=== PATIENT | female | born 1945 | race Caucasian/White ===

== ENCOUNTER → 2016-10-15 14:14 | Outpatient (CLI) | payer OTHER ==
[2016-05-25 18:46] VITALS: BMI 27.2
[~2016-10-15 14:14] MED LIST: ACIDOPHILUS X-S1 TAB PO; ALDACTONE25 MG PO; ALDACTONE50 MG PO; CALCIUM CITRATE PO; CALTRATE-600600 MG PO; CARAFATE1 G PO; COLCRYS0.6 MG PO; COREG12.5 MG PO; COREG25 MG PO; COZAAR25 MG; COZAAR25 MG PO; COZAAR50 MG PO; DEMADEX5 MG PO; ELIQUIS5 MG PO; FERATE PO; FERROCITE PLUS1 CAP PO; HUMALOG 30100 UNITS/ SC; LANOXIN250 MCG PO; LEVEMIR100 U/M1; LEVEMIR100 U/M1 SC; LEVEMIR100 U/M1 SQ; LEXAPRO10 MG PO; LEXAPRO20 MG PO; LEXAPRO5 MG PO; NOVOLOG MI100 UNIT/1; NOVOLOG100 U/M1 SC; PRADAXA150 MG PO; PRAVACHOL40 MG PO; PRILOSEC20 MG PO; TYLENOL ARTHRI650 MG PO; ULTRAM50 MG PO; ZYLOPRIM300 MG PO; [UNRECOGNIZED DRUG - OTHER] OR; [UNRECOGNIZED DRUG - OTHER] PO
== END | disposition home or self-care (01) ==
LOC: D.MAMMO 10-14 10:00
DX: Z12.31 Encounter for screening mammogram for malignant neoplasm of breast (principal)

== ENCOUNTER 2016-10-23 10:50 | Outpatient (CLI) | payer OTHER ==
[~2016-10-23] VITALS: Ht 160 cm; Wt 68.2 kg
[2016-10-23] MEDS ORDERED: ALDACTONE25 MG PO (14:04)
[2016-10-23 14:10] VITALS: BP 191/62; Ht 160 cm; Wt 68.2 kg
--- NOTE | 2016-10-23 14:14 | NUR ---
1350 PT VOIDS. PRE MEDG GIVEN PER SEP. BLOOD CHECKED AT BEDSIDE BY THIS NURSE AND AL COWAN RN. INITIATED BY ALARIS PUMP AT 50/CC/HR. 1405 DENIES PROBLEMS, RATE INCREASED TO 150/CC/HR.
--- NOTE | 2016-10-23 15:39 | NUR ---
1315 NO PROBLEMS WITH TRANSFUSION. RATE AT 150/CC/HR. PT GETTING SLEEPY. FRIEND AT BEDSIDE.
--- NOTE | 2016-10-23 16:26 | NUR ---
1450 PT NAPPING. FRIEND LEFT AT THIS TIME. 1505 IT SITE PATENT. BLOOD GOING WELL. 1535 BLOOD NEAR COMPLETEION. 1550 BLOOD COMPLETED, LINE BEING FLUSHED WITH NS. 1600 2ND UNIT CHECKED AT BEDSIDE BY THIS NURSE AND AL DE PAZ RN, INITIATED AT 50/CC/HR BY ALARIS PUMP. 1615 DENIES PROBLEMS, RATE INCREASED TO 150/CC/HR, ADA SUPPER TRAY ORDERED.
--- NOTE | 2016-10-23 16:36 | NUR ---
1630 ADA SUPPER DIET SERVED.
--- NOTE | 2016-10-23 18:03 | NUR ---
1730 ATE 80% SUPPER, BLOOD NEAR COMPLETION, TALKING ON PHONE, FRIEND AT BEDSIDE. 1800 BLOOD COMPLETED, LINE BEING FLUSHED WITH NS.
--- NOTE | 2016-10-23 19:04 | NUR ---
1900 POST V.S. CHECK GOOD, IV DC'D WITH CATH INTACT. PT. UP TO BR VOIDS LG AMT. RELEASED IN WC.
== END 2016-10-23 19:15 | disposition home or self-care (01) ==
LOC: D.OPS 10:50
DX: D64.9 Anemia, unspecified (principal)

== ENCOUNTER → 2016-11-18 16:43 | Outpatient (CLI) | payer OTHER ==
[2016-10-23 14:10] VITALS: BMI 26.6
== END | disposition home or self-care (01) ==
LOC: D.MAMMO 14:00
DX: R92.8 Other abnormal and inconclusive findings on diagnostic imaging of breast (principal)

== ENCOUNTER 2016-12-04 07:25 | Day surgery (SDC) | payer OTHER ==
[~2016-12-04] VITALS: Ht 160 cm; Wt 65.8 kg
--- NOTE | ~2016-12-04 | OP ---
PATIENT NAME: FESTUS HERNANDES MEDICAL RECORD: [id number] :47 LOCATION:D.OPS ADMISSION DATE: SURGEON: TEDDY HOWELL MD DATE OF OPERATION: 12/04/2016 PREOPERATIVE DIAGNOSES: 1. Acute blood loss anemia requiring transfusions. 2. 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 POSTOPERATIVE DIAGNOSES: 1. Acute blood loss anemia requiring transfusions. 2. 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 3. Cardial ectasias, fundal ectasias and a recurrence of moderate amount of gastric antral vascular ectasias, which certainly could account for the patient's acute blood loss anemia. PROCEDURES: 1. Esophagogastroduodenoscopy without biopsies. 2. Argon plasma coagulation therapy to gastric fundal and cardial vascular ectasias of the stomach, which is a radiofrequency type of ablation of benign gastric process. SURGEON: Teddy Howell MD WOOD GRINDER OPERATOR: None. BLOOD LOSS: Minimal. ANESTHESIA: General. COMPLICATIONS: None. OPERATIVE COURSE: The patient was conveyed to the operating room electively on 12/04/2016. General anesthesia was induced by anesthesia staff. A bite block was inserted. A gastroscope was inserted into the mouth. It was advanced easily into the hypopharynx. The esophagus was easily intubated as were the stomach and duodenum. Upon withdrawal, retroflexed and angulus views were obtained. No biopsies were obtained. Utilizing the argon plasma tibco developer with the esophageal setting in the forced mode, I ablated some cardial ectasias including some just distal to the EG junction, some fundal ectasias and then a moderate amount of antral ectasias, which likely accounts for the patient's acute blood loss anemia. The endoscope was then withdrawn under direct vision. The patient was then extubated and conveyed to post-anesthesia care unit where she was in stable condition. There is no need for her to follow up with me in the office unless she develops a complication related to this operative procedure. She will be referred back if she has recurrent anemia from new ectasias. TRANSINT:[id number] Voice Confirmation ID: [id number] DOCUMENT ID: [id number] OPERATIVE REPORT [id number] FESTUS HERNANDES ROBERT MD CC: OLIVIA GRAHAM MD, ROXANN JAVIER MD and COLLIN MORENO MD [id number] DICTATION DATE: 12/04/16 1128 COLLECTION SUPPORT SPECIALIST: 12/04/16 1451 [facility] 12/04/16 [address] [address] [place] [address]
--- NOTE | ~2016-12-04 | HP ---
PATIENT: FESTUS HERNANDES MEDICAL RECORD: [id number] ACCOUNT: [id number] LOCATION:RACHEL : 47 ADMISSION DATE: 12/04/16 HISTORY AND PHYSICAL EXAMINATION CHIEF COMPLAINT: Anemia. HISTORY OF PRESENT ILLNESS: The patient has recurrent anemia. It is acute blood loss anemia, which has required a recent transfusion. The patient has a history of gastric antral vascular ectasias, which have bled and caused acute blood loss anemia. She has been referred back for argon plasma coagulation therapy to these areas. The risks, possible complications and alternatives to procedure were explained to the patient. She elects to proceed. PAST MEDICAL AND SURGICAL HISTORY: Gout, headache, history of heart murmur, hypertension, kidney disease, arthritis, diabetes, diverticulitis, history of diverticulitis, history of syncope, history of EGDs, history of breast biopsy, history of pacemaker and defibrillator, history of laminectomy, history of knee surgery, anxiety, hypersomnia, cardiomyopathy, gastric antral vascular ectasias, chronic renal failure, polyarthropathy, atrial fibrillation, insulin-dependent diabetes mellitus, congestive heart failure. FAMILY HISTORY: Mother had a malignant tumor of an ovary, father had a malignant tumor of the colon and 2 sisters had malignant tumors of the breast. SOCIAL HISTORY: Retired. Former smoker. REVIEW OF SYSTEMS: Positive for dyspnea on exertion, positive for heart murmur, positive for nausea, positive for diarrhea, positive for arthralgias, positive for back pain. HOME MEDICATIONS: Last list of home medicines I have for the patient includes carvedilol, digox, Humalog, Lexapro, losartan, omeprazole, spironolactone, torsemide, tramadol. ALLERGIES: CODEINE AND MORPHINE. PHYSICAL EXAMINATION: GENERAL: The patient does not appear acutely ill. She does not appear chronically ill. VITAL SIGNS: Reviewed. HEENT: External ears appear normal. She has limited range of motion of the neck. NECK: Trachea is midline. CHEST: No intercostal retractions. PULMONARY: Nonlabored, no stridor. ABDOMEN: Nontender. EXTREMITIES: No peripheral cyanosis. INTEGUMENT: No rash, no ulcerations. PSYCHIATRIC: Normal affect. NEUROLOGIC: Nonfocal, no lethargy. The patient answers questions appropriately. She talks very slowly; however. EXTREMITIES: No peripheral cyanosis. BACK: Mild thoracic kyphosis. HISTORY AND PHYSICAL [id number] FESTUS HERNANDES IMPRESSION: Acute blood loss anemia requiring transfusions, likely due to recurrence of bleeding gastric antral vascular ectasias. PLAN: EGD with the argon plasma edge cutting machine operator. TRANSINT:[id number] Voice Confirmation ID: [id number] DOCUMENT ID: [id number] TEDDY HOWELL MD CC: OLIVIA GRAHAM MD, ROXANN JAVIER MD and COLLIN MORENO MD [id number] DICTATION DATE: 12/04/16 1135 MANAGER INSURANCE: 12/04/16 1204 [facility] 12/04/16 [id number] [place] [address]
[~2016-12-04 07:25] MED LIST changes: +ASPIRIN EC81 M1 PO; +MACROBID100 MG PO; +OMEPRAZOLE40 MG PO
[2016-12-04 08:38] LABS: HEMATOCRIT 29.5 % (36.0-48.0); HEMOGLOBIN 8.8 g/dL (12-16); MCH 26.6 pg (26.0-34.0); MCHC 29.8 g/dL (31.0-37.0); MCV 89.1 fL (80.0-100.0); MEAN PLATELET VOLUME 9.8 fL (7.4-10.4); RBC 3.31 10x6/uL (4.00-5.40); RDW 15.5 % (11.5-14.5); WBC 4.1 10x3/uL (4.8-10.8)
[2016-12-04 08:53] LABS: ANION GAP 8.6 mmol/L (8-16); CALCIUM 8.9 mg/dL (8.5-10.1); CARBON DIOXIDE 30.3 mmol/L (21.0-32.0); CREATININE - SERUM 1.2 mg/dL (0.6-1.3); POTASSIUM - SERUM 4.9 mmol/L (3.5-5.1)
[2016-12-04 09:03] VITALS: Ht 160 cm; Wt 65.8 kg
--- NOTE | 2016-12-04 14:15 | NUR ---
CONSUMED 100% OF FULL LIQUIDS, FAMILY HERE FOR TELEMARKETER SUPERVISOR. DISCHARGE INSTRUCTIONS GIVEN, VOICED UNDERSTANDING. IV REMOVED INTACT. DISCHARGED HOME VIA WC.
== END 2016-12-04 14:20 | disposition home or self-care (01) ==
LOC: D.OPS 07:25 → D.PAN 09:10 → D.OPS 10:00
PROVIDERS: Anesthesiology
DX: K31.811 Angiodysplasia of stomach and duodenum with bleeding (principal); D62 Acute posthemorrhagic anemia; M13.0 Polyarthritis, unspecified; E11.22 Type 2 diabetes mellitus with diabetic chronic kidney disease; I13.0 Hypertensive heart and chronic kidney disease with heart failure and stage 1 through stage 4 chronic kidney disease, or unspecified chronic kidney disease; N18.9 Chronic kidney disease, unspecified; I50.9 Heart failure, unspecified; Z87.891 Personal history of nicotine dependence; Z79.4 Long term (current) use of insulin; I48.91 Unspecified atrial fibrillation; Z95.0 Presence of cardiac pacemaker; Z95.810 Presence of automatic (implantable) cardiac defibrillator; F41.9 Anxiety disorder, unspecified; G47.10 Hypersomnia, unspecified; M10.9 Gout, unspecified; Z79.899 Other long term (current) drug therapy

== ENCOUNTER → 2016-12-18 08:29 | Outpatient (CLI) | payer OTHER ==
[2016-12-04 09:03] VITALS: BMI 25.7
== END | disposition home or self-care (01) ==
LOC: D.US 08:29
DX: N63 Unspecified lump in breast (principal); R92.8 Other abnormal and inconclusive findings on diagnostic imaging of breast

== ENCOUNTER 2017-01-21 05:37 | Inpatient (IN) | payer OTHER ==
[2017-01-21] VITALS (16 sets, daily range): BP systolic 82–110; BP diastolic 53–90; BMI 24.1; BMI 24.7
[~2017-01-21] VITALS: Ht 160 cm; Wt 68.7 kg
[~2017-01-21 05:37] MED LIST changes: +ZYLOPRIM100 MG PO
[2017-01-21 06:30] LABS: BASOPHILS 0.6 % (0-2); HEMATOCRIT 30.2 % (36.0-48.0); HEMOGLOBIN 8.9 g/dL (12-16); IMMATURE GRANULOCYTES 0.3 % (0-5); MCH 25.7 pg (26.0-34.0); MCHC 29.5 g/dL (31.0-37.0); MCV 87.3 fL (80.0-100.0); MEAN PLATELET VOLUME 10.1 fL (7.4-10.4); MONOCYTES 10.4 % (2-11); NEUTROPHILS 73.7 % (40-80); PLATELET COUNT 154 10x3/uL (130-400); RBC 3.46 10x6/uL (4.00-5.40); RDW 15.9 % (11.5-14.5); WBC 6.9 10x3/uL (4.8-10.8)
[2017-01-21 06:45] LABS: APTT 28.8 SECONDS (22.8-39.4); INR 1.19 (0.85-1.17)
[2017-01-21 06:50] LABS: ALBUMIN 2.7 g/dL (3.4-5.0); ANION GAP 12.8 mmol/L (8-16); BILIRUBIN - TOTAL 0.5 mg/dL (0.2-1.3); CARBON DIOXIDE 27.1 mmol/L (21.0-32.0); CREATININE - SERUM 1.8 mg/dL (0.6-1.3); POTASSIUM - SERUM 4.9 mmol/L (3.5-5.1); PROTEIN - SERUM 6.4 g/dL (6.4-8.2)
--- NOTE | 2017-01-21 14:08 | NUR ---
PT ARRIVED TO UNIT. ASSESSMENT COMPLETE, SEE FLOWSHEET FOR DETAILS. FOLLOWS COMMANDS. ANSWERS APPROPRIATELY. ON BIPAP. 1 PIV ACCESS. BP MARGINAL. PACED ON MONITOR. DOPPLERED PEDAL PULSES.
--- NOTE | 2017-01-21 14:46 | NUR ---
SPOKE WITH BRYANT WITH DR. CALVO ABOUT BP BEING 85/43. DR. CALVO WANTS TO CONSULT DR. WORLEY.
--- NOTE | 2017-01-21 14:50 | NUR ---
PAGED DR. CALVO AND DR. WORLEY. BP 85/60
--- NOTE | 2017-01-21 15:09 | NUR ---
SPOKE WITH DR. CALVO'S NURSE, SAID CONSULT DR. WORLEY. DR. WORLEY AT BEDSIDE.
--- NOTE | 2017-01-21 15:39 | NUR ---
NOTIFIED DR. WORLEY ABOUT LIVING WILL. HE HAD A DISCUSSION ABOUT DNR STATUS WITH FAMILY. WILL NOTIFY DR. CALVO.
--- NOTE | 2017-01-21 16:46 | NUR ---
SPOKE WITH DR. CALVO AND NOTIFIED OF LIVING WILL.
--- NOTE | 2017-01-21 17:13 | NUR ---
PT REPORTING PAIN 01/13. CALLED DR. CALVO'S OFFICE TO SEE IF HE COULD ORDER PAIN MEDICINE. OFFICE PAGED DR. DUARTE.
--- NOTE | 2017-01-21 17:29 | NUR ---
SPOKE WITH DR. DUARTE. HE ORDERED MORPHINE CHIROPRACTIC NEUROLOGIST STANDARD DOSE. TRIED TO ORDER IT BUT REALIZE THAT SHE HAS A MORPHINE ALLERGY. CALLED DR. DUARTE BACK. HE ORDERED DEMEROL CHIROPRACTIC NEUROLOGIST WITH STANDARD STARTING DOSE.
--- NOTE | 2017-01-21 19:01 | NUR ---
16 IRISH HALEY INSERTED. CLEAR YELLOW URINE NOTED. SECURED TO RIGHT THIGH. PT TOLERATED WELL. CUT OFF SAW OPERATOR SET UP PER ORDERS. PT INSTRUCTED TO PUSH BUTTON WHEN IN PAIN.
--- NOTE | 2017-01-21 19:45 | NUR ---
REPORT RECEIVED AND CARE ASSUMED. SHIFT ASSESSMENT COMPLETED SEE FLOWSHEET. PT IS LYING QUIETLY WITH EYES CLOSED. EASILY AROUSED AND MAKES APPROPRIATE RESPONSES TO QUESITONS. DENIES PAIN AND IS HOLDING HER OFFICE SPECIALIST BUTTON. PT WEARING BIPAP AND TOLERATING IT WELL. DOES HAVE LARGE ELASTIC WRAP OVER UPPER TORSO COVERING SURGICAL SITE OF BILATERAL MASTECTOMY. NO BLEEDING OR DRAINAGE FROM DRESSING. PT WITH WESLY DRAIN, 1 FROM LEFT CHEST AND 1 FROM RIGHT. SCANT AMOUNT OF BLOODY DRAINAGE NOTED IN COMPRESSED BULB. F/C DRAINING CLOUDY YELLOW URINE. TO CDS. THERE WAS A SAMPLE COLLECTED AT TIME OF INSERTION AND SENT TO LAB PER PROTOCOL. PT IS BEING MONITORED PER STANDARD ICU PROTOCOL WITH ALL ALARMS VERIFIED AND CHECKED AT THIS TIME. IVF ARE APPROPRIATLY LABELED AND ARE CURRENT. IV LINES ARE CURRENT AND WERE HUNG TODAY, NOT DUE TO BE CHANGED.
[2017-01-21 20:04] LABS: APPEARANCE HAZY (CLEAR); BILIRUBIN NEGATIVE (NEGATIVE); COLOR YELLOW (YELLOW); GLUCOSE NEGATIVE (NEGATIVE); KETONE NEGATIVE (NEGATIVE); LEUKOCYTE ESTERASE 2+ (NEGATIVE); NITRITE NEGATIVE (NEGATIVE); PROTEIN 1+ mg/dL (NEGATIVE); SPECIFIC GRAVITY 1.025 (1.005-1.020); UROBILINOGEN NORMAL (NORMAL)
[2017-01-21 20:05] LABS: BACTERIA MANY /hpf (NONE SEEN); EPITHELIAL CELLS 0-5 /hpf (0-5); RED CELLS - URINE 0-5 /hpf (0-5); WHITE CELLS - URINE >50 /hpf (0-5)
--- NOTE | 2017-01-21 21:00 | NUR ---
FRIENDS AT BEDSIDE. UPDATE GIVEN AND QUESITONS ANSWERED. SECURITY CODE ESTABLISHED AND CONTACT INFORMATION OBTAINED. PT DOES HAVE SIBLINGS WHOM DO NOT LIVE LOCALLY. FRIENDS AT BEDSIDE ARE LISTED EMERGENCY CONTACT. PT IS ORIENTATED X 4 AT THIS TIME AND STATED SHE WAS TIRED AND WISHED TO REST. PT VERIFIES SHE IS HAVING GOOD PAIN CONTROL
--- NOTE | 2017-01-21 23:00 | NUR ---
SHIFT REASSESSMENT COMPLETED. PT HAS BEEN SLEEPING, EASILY AWAKEN AND BIPAP REMOVED FOR ORAL CARE. PT ABLE TO DO OWN ORAL CARE WITH SET UP HELP. PT IS ORIENTATED X 4 DENIES PAIN AND STATES "IT FEELS MUCH BETTER THAN I THOUGHT IT WOULD. PT ABLE TO MOVE SELF IN BED. BIPAP MASK REPLACED AND VERIFIED FOR COMFORT. CONTINUE TO MONITOR PT CLOSELY
[2017-01-22] VITALS (25 sets, daily range): BP systolic 92–116; BP diastolic 47–82; BMI 26.0
--- NOTE | 2017-01-22 01:00 | NUR ---
PT SLEEPING BUT EASILY AWAKEN. REMAINS ORIENTATED X 4. REMOVING BIPAP FOR ORAL CARE ONLY
--- NOTE | 2017-01-22 03:00 | NUR ---
SHIFT REASSESSMENT COMPLETED SEE FLOWSHEET. NO ACUTE CHANGES
--- NOTE | 2017-01-22 03:34 | NUR ---
CALL RECEIVED FROM FRIEND, ANGELA, PASSWORD VERIFIED UPDATE GIVEN. PT SLEEPING AT THIS TIME VSS. NO ACUTE DISTRESS REMAINS ON 30% BIPAP
[2017-01-22 04:23] LABS: BASOPHILS 0.3 % (0-2); EOSINOPHILS 0.8 % (0-7); HEMATOCRIT 32.5 % (36.0-48.0); HEMOGLOBIN 9.5 g/dL (12-16); IMMATURE GRANULOCYTES 0.4 % (0-5); LYMPHOCYTES 6.7 % (15-50); MCH 25.5 pg (26.0-34.0); MCHC 29.2 g/dL (31.0-37.0); MCV 87.4 fL (80.0-100.0); MEAN PLATELET VOLUME 10.2 fL (7.4-10.4); MONOCYTES 7.4 % (2-11); NEUTROPHILS 84.4 % (40-80); RBC 3.72 10x6/uL (4.00-5.40); RDW 15.5 % (11.5-14.5)
[2017-01-22 04:28] LABS: PLATELET COUNT 235 10x3/uL (130-400)
[2017-01-22 04:47] LABS: ALBUMIN 2.5 g/dL (3.4-5.0); ANION GAP 11.8 mmol/L (8-16); BILIRUBIN - TOTAL 0.9 mg/dL (0.2-1.3); CALCIUM 8.7 mg/dL (8.5-10.1); CARBON DIOXIDE 26.2 mmol/L (21.0-32.0); CREATININE - SERUM 1.8 mg/dL (0.6-1.3); MAGNESIUM - SERUM 2.1 mg/dL (1.8-2.4); PHOSPHOROUS 5.7 mg/dL (2.5-4.9); PROTEIN - SERUM 6.5 g/dL (6.4-8.2); TROPONIN-I 0.036 ng/mL (0.000-0.060)
--- NOTE | 2017-01-22 06:00 | NUR ---
VISITOR AT BEDSIDE. BIPAP MASK REMOVED AND PT PLACED ON 4L O2 TO ALLOW FOR ORAL CARE AND GIVE PT A BREAK. LABS WERE REVIEWED
--- NOTE | 2017-01-22 07:00 | NUR ---
ASSESSMENT COMPLETE PER FLOWSHEET.
--- NOTE | 2017-01-22 09:00 | NUR ---
CVL DCD. PIV 20 G STARTED X 1 STICK RIGHT FOREARM.
--- NOTE | 2017-01-22 09:00 | NUR ---
DR CALVO CALLED ABOUT HEART RATE. CONSULT DR MORENO. DR MORENO OFFICE CALLED.
--- NOTE | 2017-01-22 10:00 | NUR ---
DR CALVO HERE. ALEXIA WRAP OFF.
--- NOTE | 2017-01-22 19:15 | NUR ---
REPORT RECEIVED AND CARE ASSUMED. INITIAL SHIFT ASSESSMENT COMPLETED SEE FLOWSHEET. PT HAS HAD SEVERAL VISITORS AT BEDSIDE AND SEEN TO BE INTERACTING QUITE FREELY. PT INTIALLY DENIED PAIN BUT THEN STATED SHE HAD SOME. ENCOURAGED TO UTILIZE THE DEMEROL OILSEED MEAT PRESSER. PT DEMONSTRATED COMPREHENSION. PT IS BEING MONITORED PER STANDARD ICU PROTOCOL WITH ALL ALARMS VERIFIED AND CHECKED. PT IS CURRENTLY ON 3 L N/C AND TO BE PLACED BACK ON BIPAP AT HS. TOLERATING THE O2 WELL. HAS BEEN OFF BIPAP SINCE 1800 PER REPORT. DRESSING TO CHEST BILATERALLY ARE CDI AND WESLY DRAINS TO EACH SITE ARE WITH SCANT AMOUNT OF SEROSANG DRAINAGE. F/C IS PATENT URINE IS THICK CLOUDY YELLOW. PT STATES SHE HAS BEEN TREATED FOR UTI X 2 RECENTLY. IV FLUIDS AND IV LINES ARE CURRENT AND DATED TIMED AND LABELED APPROPRIATLY. IV LINES TO BE CHANGED 01/24/17. IV SITE WNL DRESSING INTACT SITED 01/21/17. CALL LIGHT IN REACH AND PT ENCOURAGED TO CALL FOR ASSISTANCE.
--- NOTE | 2017-01-22 21:00 | NUR ---
HS MEDS GIVEN WITHOUT DIFFICULTY. PT TEACHING DONE PRIOR TO ADMINISTRATION OF SUCH. PT VERBALIZED COMPREHENSION OF TEACHING. FSBS 139 PER GLUCOMETER. PT REFUSED HS SNACK STATING SHE WAS TIRED AND JUST NEEDED TO REST. NO VISITORS AT THIS TIME
--- NOTE | 2017-01-22 22:00 | NUR ---
PT PLACED ON BIPAP 30% PER RT. PT VERBALIZED COMPREHENSION OF TREATMENT
--- NOTE | 2017-01-22 23:00 | NUR ---
SHIFT REASSESSMENT COMPLETED SEE FLOWSHEET. NO ACUTE DISTRESS
[2017-01-23] VITALS (23 sets, daily range): BP systolic 100–139; BP diastolic 50–79
--- NOTE | 2017-01-23 01:00 | NUR ---
PT SLEEPING RESP REG AND NONLABORED. TOLERATING THE BIPAP WELL
--- NOTE | 2017-01-23 03:00 | NUR ---
SHIFT REASSESSMENT COMPLETED SEE FLOWSHEET. PT TOLERATING BIPAP WELL AND SLEEPING WELL TONIGHT
--- NOTE | 2017-01-23 03:30 | NUR ---
RADIOLOGY TECHS AT BEDSIDE FOR AM CXR
--- NOTE | 2017-01-23 04:22 | NUR ---
RESTAURANT SERVICE MANAGER AT BEDSIDE FOR AM LAB DRAW PT TAKEN OFF BIPAP PLACED ON 3L N/C
[2017-01-23 04:39] LABS: BASOPHILS 0.2 % (0-2); EOSINOPHILS 1.3 % (0-7); HEMATOCRIT 27.8 % (36.0-48.0); HEMOGLOBIN 8.3 g/dL (12-16); IMMATURE GRANULOCYTES 0.3 % (0-5); LYMPHOCYTES 8.5 % (15-50); MCH 25.3 pg (26.0-34.0); MCHC 29.9 g/dL (31.0-37.0); MEAN PLATELET VOLUME 8.9 fL (7.4-10.4); NEUTROPHILS 80.7 % (40-80); RBC 3.28 10x6/uL (4.00-5.40); RDW 15.6 % (11.5-14.5); WBC 10.5 10x3/uL (4.8-10.8)
[2017-01-23 04:44] LABS: MCV 84.8 fL (80.0-100.0); PLATELET COUNT 183 10x3/uL (130-400)
--- NOTE | 2017-01-23 04:45 | NUR ---
RT AT BEDSIDE TO DO ABGS.
[2017-01-23 05:07] LABS: ALBUMIN 2.2 g/dL (3.4-5.0); ANION GAP 12.8 mmol/L (8-16); BILIRUBIN - TOTAL 0.63 mg/dL (0.2-1.3); CALCIUM 8.3 mg/dL (8.5-10.1); CARBON DIOXIDE 24.5 mmol/L (21.0-32.0); CREATININE - SERUM 2.4 mg/dL (0.6-1.3); MAGNESIUM - SERUM 2.4 mg/dL (1.8-2.4); PHOSPHOROUS 5.2 mg/dL (2.5-4.9); POTASSIUM - SERUM 5.3 mmol/L (3.5-5.1); PROTEIN - SERUM 6.1 g/dL (6.4-8.2)
--- NOTE | 2017-01-23 07:00 | NUR ---
ASSESSMENT COMPLETE PER FLOWSHEET. PT VOICES NO CO AT TIME. CALL LIGHT WITHIN REACH.
--- NOTE | 2017-01-23 07:18 | NUR ---
PT DOING IS AT 400ML ENCOURAGED TO DO Q2HWA
--- NOTE | 2017-01-23 07:30 | NUR ---
PULLING 500 ON IS. VOICES NO CO AT TIME.
--- NOTE | 2017-01-23 08:30 | NUR ---
UP IN CHAIR. VOICES NO CO AT TIME. BREAKFAST SERVED.
--- NOTE | 2017-01-23 10:43 | NUR ---
Nutrition follow-up: Diet advanced to consistent CHO Labs reviewed Will provide food choices with selective menus and honor food preferences within diet restrictions. RDN following.
--- NOTE | 2017-01-23 11:30 | NUR ---
SITTING UP IN CHAIR EATING LUNCH. NO CO AT TIME.
--- NOTE | 2017-01-23 13:00 | NUR ---
UP SITTING IN CHAIR. NO CO AT TIME.
--- NOTE | 2017-01-23 14:00 | NUR ---
UP ON BSC VOICES NO CO AT TIME.
[2017-01-23 14:41] LABS: ANION GAP 13.5 mmol/L (8-16); CALCIUM 8.5 mg/dL (8.5-10.1); CARBON DIOXIDE 24.5 mmol/L (21.0-32.0); CREATININE - SERUM 2.4 mg/dL (0.6-1.3)
--- NOTE | 2017-01-23 16:25 | NUR ---
SLEEPING NO DISTRESS NOTED.
--- NOTE | 2017-01-23 16:32 | NUR ---
PT CAN TRANSFER TO FLOOR PER DR CALVO ORDER. AWAITING BED.
--- NOTE | 2017-01-23 18:30 | NUR ---
BACK IN CHAIR. VOICES NO CO AT TIME. PULLING 500 ON IS.
--- NOTE | 2017-01-23 19:00 | NUR ---
REPORT RECEIVED. ASSESSMENT COMPLETE PER FLOW SHEET. SITTING IN CHAIR. ALERT AND ORIENTED TO PERSON,TIME,PLACE, AND SITUATION. NC AT 3L/MIN. BILAT MASTECTOMY, DRESSING INTACT. WESLY DRAIN #1 TO R CHEST. WESLY DRAIN #2 TO L CHEST. L FOREARM PIV. HALEY CATHETER IN PLACE AND SECURED. SCDS ON. SEE FLOW SHEET FOR COMPLETE ASSESEMENT. CALL LIGHT WITHIN REACH. VSS. WILL CONTINUE TO MONITOR.
--- NOTE | 2017-01-23 20:30 | NUR ---
COMPLETE BED LINENS CHANGED. ASSISTED BACK IN BED X2 PERSONS. DENIES FURTHER NEEDS AT THIS TIME. CALL LIGHT WITHIN REACH. BED IN LOWEST POSITION. VSS. WILL CONTINUE TO MONITOR.
--- NOTE | 2017-01-23 21:00 | NUR ---
LAYING IN BED AWAKE. NO VISITORS AT THIS TIME. DENIES NEEDS AT THIS TIME. CALL LIGHT AND BELONGINGS WITHIN REACH. BED IN LOWEST POSITION. VSS. WILL CONTINUE TO MONITOR.
--- NOTE | 2017-01-23 23:00 | NUR ---
REASSESSMENT COMPLETE PER FLOW SHEET, SEE FOR DETAILS. VSS. DENIES NEEDS AT THIS TIME. CALL LIGHT WITHIN REACH. BED IN LOWEST POSITION. WILL CONTINUET TO [facility].
[2017-01-24] VITALS (10 sets, daily range): BP systolic 119–150; BP diastolic 52–96; Ht 160 cm; Wt 68.7 kg
--- NOTE | 2017-01-24 00:05 | NUR ---
SPECIAL AGENT SECRET SERVICE LIGHT REQUESTING WATER. WATER PROVIDED. DENIES FURTHER NEEDS. CALL LIGHT AND BELONGINGS WITHIN REACH. VSS. WILL CONTINUE TO MONTIOR.
--- NOTE | 2017-01-24 01:00 | NUR ---
LAYING IN BED SLEEPING. VSS. CALL LIGHT WITHIN REACH. BED IN LOWEST POSITION. WILL CONTINUE TO MONITOR.
--- NOTE | 2017-01-24 02:34 | NUR ---
LAYING IN BED SLEEPING. VSS. CALL LIGHT WIHIN REACH. BED IN LOWEST POSITION. WILL CONTINUE TO MONITOR.
--- NOTE | 2017-01-24 03:00 | NUR ---
REASSESSMENT COMPLETE PER FLOW SHEET, SEE FOR DETAILS. VSS. CALL LIGHT AND BELONGINGS WITHIN REACH. BED IN LOWEST POSITION. WILL CONTINUE TO MONITOR.
--- NOTE | 2017-01-24 04:00 | NUR ---
LAYING IN BED SLEEPING. WESLY DRAINS EMPTIED AND COMPRESSED. HALEY CATHETER EMPTIED. VSS. DENIES NEEDS AT THIS TIME. CALL LIGHT AND BELONGINGS WITHIN REACH. WILL CONTINUE TO MONITOR.
[2017-01-24 04:44] LABS: BASOPHILS 0.2 % (0-2); EOSINOPHILS 2.1 % (0-7); HEMATOCRIT 26.6 % (36.0-48.0); HEMOGLOBIN 8.1 g/dL (12-16); IMMATURE GRANULOCYTES 0.2 % (0-5); LYMPHOCYTES 7.9 % (15-50); MCH 25.1 pg (26.0-34.0); MCHC 30.5 g/dL (31.0-37.0); MCV 82.4 fL (80.0-100.0); MEAN PLATELET VOLUME 9.3 fL (7.4-10.4); MONOCYTES 9.8 % (2-11); NEUTROPHILS 79.8 % (40-80); PLATELET COUNT 167 10x3/uL (130-400); RBC 3.23 10x6/uL (4.00-5.40); RDW 15.4 % (11.5-14.5); WBC 8.5 10x3/uL (4.8-10.8)
[2017-01-24 04:49] LABS: ANION GAP 11.5 mmol/L (8-16); CALCIUM 7.9 mg/dL (8.5-10.1); CARBON DIOXIDE 24.3 mmol/L (21.0-32.0); CREATININE - SERUM 1.9 mg/dL (0.6-1.3); MAGNESIUM - SERUM 2.2 mg/dL (1.8-2.4); POTASSIUM - SERUM 4.8 mmol/L (3.5-5.1)
[2017-01-24 04:52] LABS: PHOSPHOROUS 3.5 mg/dL (2.5-4.9)
--- NOTE | 2017-01-24 06:00 | NUR ---
NO VISITORS AT THIS TIME. VSS. DENIES NEEDS. CALL LIGHT AND BELONGINGS WITHIN REACH. BED IN LOWEST POSITION. WILL CONTINUE TO MONITOR.
--- NOTE | 2017-01-24 07:00 | NUR ---
ASSESSMENT COMPLETE PER FLOWSHEET.
--- NOTE | 2017-01-24 09:00 | NUR ---
FAMILY UPDATED. PT VOICES NO CO AT TIME.
--- NOTE | 2017-01-24 10:00 | NUR ---
UP IN CHAIR NO CO AT TIME.
--- NOTE | 2017-01-24 11:29 | NUR ---
* Is the patient Alert and Oriented? Yes 0 * How many steps to enter\exit or inside your home? 0 0 * PCP Dr. Medina 0 * Pharmacy [facility] #[facility] 0 * Preadmission Environment Home with Family 0 * ADLs Independent 0 * Equipment Glucometer Rolling Walker 0 * List name and contact numbers for known caregivers / representatives who currently or will assist patient after discharge: Friend/House Mate - Micheline Echeverria [phone] 0 * Additional services required to return to the preadmission environment? Yes 0 * Can the patient safely return to the preadmission environment? Yes 0 * Has this patient been hospitalized within the prior 30 days at any hospital? 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 Patient states she lives with her friend Micheline Echeverria & is independent with all ADL's & IADL's. She has a walker but does not use it. She also has a glucometer. Discussed home health services with patient. She is agreeable. Reviewed list of agencies - [facility] signed for [facility] - will see which one is in network with her insurance. Face Sheet has been faxed to [facility], which was her first choice. Waiting response. CM will follow & assist as needed. Supervisor Polishing: Cindi Felix
--- NOTE | 2017-01-24 11:32 | NUR ---
TRANSFER TO 2230. PT VOICES NO CO AT TIME. REPORT GIVEN TO HOLLEY CHRISTIANSON.
--- NOTE | 2017-01-24 12:10 | NUR ---
RECEIVED PT VIA BED AT THIS TIME PT AOX4 RESP EVEN AND NONLABORED PT DENIES NEEDS AT THIS TIME IV TO LEFT FOREARM PATENT AND INTACT AT THIS TIME SRX2 BED AT LOWEST SETTING CALL LIGHT WITHIN REACH WILL CONTINUE TO MONITOR
--- NOTE | 2017-01-24 15:32 | NUR ---
Rehab Prescreening Consult recieved and the chart has been reviewed. She meets IRF criteria, however she is [employer] PPO which will require a preauthorization. A PT and an OT eval will be required for their review. Once completed all information will be faxed to [facility] for their review. Thank You for the Referral. Erica Myers RN Clinical Liaison, Rehab
--- NOTE | 2017-01-24 21:18 | NUR ---
PATIENT IS AWAKE AND ALERT. PATIENT STATED SHE IS READY TO SETTLE IN AND REQUESTED THE LIGHT BE TURNED OFF. TURNED OFF THE LIGHT. DOOR OPEN. PATIENT IS CHANGING CHANNELS ON THE TV. PATIENT DENIES FURTHER NEEDS AT THIS TIME.
[2017-01-25] VITALS: BP 146/65
[2017-01-25 04:00] VITALS: BP 144/51
--- NOTE | 2017-01-25 04:56 | NUR ---
PT HAS RESTED WELL HAS PAIN CONTROL VIA CONTACT LENS FITTER DEMEROL. DRESSING IN PLACE TO BILATERAL BREAST SITES WITH DRAINS NOTED X 2 WILL MONITOR.
[2017-01-25 06:24] LABS: BASOPHILS 0.2 % (0-2); EOSINOPHILS 2.1 % (0-7); HEMATOCRIT 29.2 % (36.0-48.0); HEMOGLOBIN 8.9 g/dL (12-16); IMMATURE GRANULOCYTES 0.5 % (0-5); LYMPHOCYTES 5.4 % (15-50); MCH 25.1 pg (26.0-34.0); MCHC 30.5 g/dL (31.0-37.0); MCV 82.3 fL (80.0-100.0); MEAN PLATELET VOLUME 9.5 fL (7.4-10.4); MONOCYTES 8.4 % (2-11); NEUTROPHILS 83.4 % (40-80); PLATELET COUNT 187 10x3/uL (130-400); RBC 3.55 10x6/uL (4.00-5.40); RDW 15.7 % (11.5-14.5); WBC 10.1 10x3/uL (4.8-10.8)
[2017-01-25 06:56] LABS: ALBUMIN 2.4 g/dL (3.4-5.0); ANION GAP 12.3 mmol/L (8-16); BILIRUBIN - TOTAL 0.7 mg/dL (0.2-1.3); CALCIUM 8.8 mg/dL (8.5-10.1); CARBON DIOXIDE 25.4 mmol/L (21.0-32.0); MAGNESIUM - SERUM 2.1 mg/dL (1.8-2.4); PHOSPHOROUS 2.8 mg/dL (2.5-4.9); POTASSIUM - SERUM 4.7 mmol/L (3.5-5.1); PROTEIN - SERUM 6.5 g/dL (6.4-8.2)
[2017-01-25 06:57] LABS: CREATININE - SERUM 1.2 mg/dL (0.6-1.3)
--- NOTE | 2017-01-25 07:55 | NUR ---
PT AOX4 RESP EVEN AND NONLABORED PT DENIES NEEDS AT THIS TIME IV TO LEFT FOREARM PATENT AND INTACT AT THIS TIME SRX2 BED IN LOWEST SETTING CALL LIGHT WITHIN REACH WILL CONTINUE TO MONITOR
[2017-01-25 08:42] VITALS: BP 136/70
[2017-01-25 12:19] VITALS: BP 174/60
[2017-01-25 16:28] VITALS: BP 149/38
--- NOTE | 2017-01-25 19:45 | NUR ---
ASSESSMENT COMPLETE PER FLOWSHEET. VOICES C/O SOB. O2 SAT 94 PERCENT. O2 ON AT 4 LITERS. SITTING UP IN BED.
[2017-01-25 20:00] VITALS: BP 105/62
--- NOTE | 2017-01-25 21:00 | NUR ---
C/O SOB. O2 SAT CONTINUES TO BE 95 PERCENT. HOB UP. WILL CONTINUE TO MONITOR O2 SATS AND PATIENT.
[2017-01-26] VITALS: BP 114/84
--- NOTE | 2017-01-26 | NUR ---
O2 SAT 97 PERCENT. O2 ON AT 4 LITERS. WILL CONTINUE TO MONITOR PT.
--- NOTE | 2017-01-26 00:43 | NUR ---
SLEEPING NO DISTRESS NOTED. SR UP X 2.
--- NOTE | 2017-01-26 01:00 | NUR ---
SLEEPING NO DISTRESS NOTED. SR UP X 2. CALL LIGHT WITHIN REACH.
--- NOTE | 2017-01-26 03:00 | NUR ---
SLEEPING NO DISTRESS NOTED. SPOT CHECK SPO2 94 PERCENT.
[2017-01-26 04:00] VITALS: BP 115/67
--- NOTE | 2017-01-26 05:00 | NUR ---
TERA MUIR. VOICES NO CO AT TIME.
[2017-01-26 05:35] LABS: BASOPHILS 0.3 % (0-2); EOSINOPHILS 2.5 % (0-7); HEMATOCRIT 26.5 % (36.0-48.0); HEMOGLOBIN 8.2 g/dL (12-16); IMMATURE GRANULOCYTES 0.4 % (0-5); LYMPHOCYTES 6.5 % (15-50); MCH 25.3 pg (26.0-34.0); MCHC 30.9 g/dL (31.0-37.0); MCV 81.8 fL (80.0-100.0); MEAN PLATELET VOLUME 9.3 fL (7.4-10.4); MONOCYTES 10.3 % (2-11); PLATELET COUNT 166 10x3/uL (130-400); RBC 3.24 10x6/uL (4.00-5.40); WBC 7.9 10x3/uL (4.8-10.8)
[2017-01-26 05:54] LABS: CALCIUM 8.9 mg/dL (8.5-10.1); CARBON DIOXIDE 27.4 mmol/L (21.0-32.0); CREATININE - SERUM 1.1 mg/dL (0.6-1.3); POTASSIUM - SERUM 4.4 mmol/L (3.5-5.1)
--- NOTE | 2017-01-26 07:45 | NUR ---
ASSESSMENT PER FLOW SHEET,PT WITHOUT DISTRESS.INCISIONS BILATERAL CHEST APROXIMATED WITH ERIC,SITES WITHOUT DRAINAGE.BL EXT EDEMA NOTED. RESP TX IN PROGRESS.BRUSING NOTED TO CHEST, BILATERAL ARMS.RIGHT LEG/KNEE.SCAPE NOTED TO NOSE.MONITOR FOR NEEDS.FALL PREVENTION INITIATED WITH BOX ALARM,BAND AND NON SKID SOCKS.DOOR OPEN TO MONITOR
[2017-01-26 09:12] VITALS: BP 136/72
[2017-01-26 12:31] VITALS: BP 143/67
[2017-01-26 16:33] VITALS: BP 137/67
--- NOTE | 2017-01-26 19:31 | NUR ---
PT WITHOUT CHANGE FROM INITIAL ASSESSMENT.CONT PLAN OF CARE
--- NOTE | 2017-01-26 19:50 | NUR ---
ASSISTED PT TO BATHROOM AND BACK TO BED.
[2017-01-26 20:00] VITALS: BP 145/61
--- NOTE | 2017-01-26 21:10 | NUR ---
ASSISTED PT TO BATHROOM AND BACK TO BED.
[2017-01-27] VITALS: BP 146/64
--- NOTE | 2017-01-27 02:00 | NUR ---
PT IN BED WITH NO DISTRESS. RESPIRATIONS ARE EVEN AND UNLABORED. SIDE RAILS X 2. BED IS LOW. CALL LIGHT IN REACH.
[2017-01-27 04:00] VITALS: BP 138/68
[2017-01-27 05:55] LABS: BASOPHILS 0.3 % (0-2); EOSINOPHILS 3.7 % (0-7); HEMATOCRIT 27.5 % (36.0-48.0); HEMOGLOBIN 8.4 g/dL (12-16); IMMATURE GRANULOCYTES 0.6 % (0-5); LYMPHOCYTES 8.4 % (15-50); MCH 25.4 pg (26.0-34.0); MCHC 30.5 g/dL (31.0-37.0); MCV 83.1 fL (80.0-100.0); MEAN PLATELET VOLUME 10.2 fL (7.4-10.4); MONOCYTES 8.9 % (2-11); NEUTROPHILS 78.1 % (40-80); PLATELET COUNT 185 10x3/uL (130-400); RBC 3.31 10x6/uL (4.00-5.40); RDW 16.3 % (11.5-14.5); WBC 7.2 10x3/uL (4.8-10.8)
[2017-01-27 06:23] LABS: ALBUMIN 2.1 g/dL (3.4-5.0); ANION GAP 11.5 mmol/L (8-16); BILIRUBIN - TOTAL 0.58 mg/dL (0.2-1.3); CALCIUM 8.3 mg/dL (8.5-10.1); CREATININE - SERUM 0.9 mg/dL (0.6-1.3); MAGNESIUM - SERUM 1.8 mg/dL (1.8-2.4); PHOSPHOROUS 2.9 mg/dL (2.5-4.9); POTASSIUM - SERUM 4.5 mmol/L (3.5-5.1); PROTEIN - SERUM 5.7 g/dL (6.4-8.2)
--- NOTE | 2017-01-27 07:40 | NUR ---
PT AOX4 RESP EVEN AND NONLABORED PT DENIES NEEDS AT THIS TIME IV TO LEFT FOREARM PATENT AND INTACT AT THIS TIME SRX2 BED AT LOWEST SETTING CALL LIGHT WITHIN REACH WILL CONITNUE TO MONITOR
[2017-01-27 13:03] VITALS: BP 155/79
--- NOTE | 2017-01-27 14:01 | NUR ---
CM REASSESSMENT NOTE: DR. CALVO SPOKE WITH PATIENT AND SHE HAS AGREED TO GO TO SNF / PATIENT SIGNED THE [facility] FORM FOR [facility] AND [facility]. REFERRAL HAS BEEN SENT.
--- NOTE | 2017-01-27 14:20 | NUR ---
ANANDA CALLED [facility] AND SPOKE WITH ZULLY REGARDING PATIENT COMING THERE. ZULLY STATED THEY WERE WAITING ON THE OT EVAL THAT WAS ORDERED FRIDAY. ANANDA THEN CALLED OP PT AND SPOKE WITH PRECIOUSPR AND SHE IS CALLING THE OT PERSON REGARDING THE PATIENTS NEED OF THE EVAL YASH. PATIENT HAD DECIDED TO GO TO SNF BECAUSE IT WOULD BE CL[place] TO [place] AND THEN STATED SHE HAD DECIDED TO SEE IF IP WOULD ACCEPT HER BECAUSE SHE HAS BEEN HERE BEFORE. ANANDA CALLED [facility] TO CANCEL THE REFERRAL FOR NOW. JOSIE COUGHLIN CALL FROM [facility] AND STATED OT WOULD BE HERE TODAY AT 4PM.
[2017-01-27 15:10] VITALS: BP 156/70
--- NOTE | 2017-01-27 18:22 | NUR ---
OT NOTE: PT COMPLETED TOILETING AND HYGIENE WITH MIN / CGA. PT COMPLETED GROOMING WITH CGA/MIN A. PT COMPLETED ADL MOB WITH MOD A TO MANAGE IV POLE AND TUBES. PT COMPLETED BED MOB WITH CGA/MIN A. THANK YOU, PEÑA DODGE/Dalia
[2017-01-27 20:00] VITALS: BP 147/43
[2017-01-28] VITALS: BP 139/34
[2017-01-28 04:03] VITALS: BP 124/39
--- NOTE | 2017-01-28 08:28 | NUR ---
FSBS 79 DENIES SYMPTOMS OF HYPOGLYCEMIA AT PRESENT TIME EATING BREAKFAST.
[2017-01-28 08:33] VITALS: BP 190/87
--- NOTE | 2017-01-28 10:26 | NUR ---
ABLE TO TAKE SEVERAL STEPS WITH HAND HELD ASSIST FROM WC TO CHAIR; PERFORMED DYNAMIC STRENGTHENING EXS TO IMPROVE TRUNK STRENGTH; SIT TO STAND ACT WITH MIN ASSIST; MIN ASSIST WITH TOILETING..PT ON CONTINUOUS 02. PT HAVING INCREASED DIFFICULTY WITH ADLS AND MOBILITY DUE TO IV AND 02 TUBES TO NEGOTIATE AROUND. PT CONTINUES TO REQUIRE THERAPY DUE TO DECREASED STRENGTH AND FUNCITONAL ENDURANCE
[2017-01-28 13:00] VITALS: BP 157/47
--- NOTE | 2017-01-28 15:17 | NUR ---
Rehab Note- Spoke with Bartolome with [facility], stated there was a note in their system that they did not receive all clinical needed and were going to notify us of this but have not. Spoke to a Precert review nurse with [facility], clinical was reviewed over the phone and placing an expidited request on the review for [facility] for acute rehab stay. Will notify by end of day or early AM on determiniation. Will continue to follow. Ref#[id number] Capri Stafford RN Clinical Liaison, [facility] Rehab
--- NOTE | 2017-01-28 16:02 | NUR ---
Rehab Note- Return call from Gertrude with [employer], IRF stay denied due to multiple reasons and can be met at a lower level of care-SNF level. Will fax out letter. Peer to peer can be set up by contacting [employer] @ [phone], stated do not have a time limit on when peer to peer can be set up but that they have physicians present Mon-Fri [phone]. Spoke with ANANDA Herrera and relayed this information to her. Thank you for this referral! Capri Stafford RN Clinical Liaison, [facility] Rehab
--- NOTE | 2017-01-28 16:08 | NUR ---
OT NOTE: PT COMPLETED TOILETING AND HYGIENE WITH SBA. PT COMPLETED ADL MOB WITH SBA. PT COMPLETED BUE AROM EXS FOR INCREASED I WITH ADLS. THANK YOU, PEÑA DODGE/Dalia
[2017-01-28 16:14] VITALS: BP 192/90
--- NOTE | 2017-01-28 16:37 | NUR ---
CM REASSESSMENT NOTE: PATIENT WAS DENIED IP REHAB AND ARJUN WAS TOLD SHE COULD GO TO [facility]. PATIENT STATED SHE WOULD LIKE TO SEE IF [facility] WOULD ACCEPT HER AND THEN [facility] IF THEY COULD NOT. REFERRAL HAS BEEN SENT TO BOTH
--- NOTE | 2017-01-28 17:14 | NUR ---
PT HAS BEEN UP IN CHAIR THIS AFTERNOON FOR SEVERAL HOURS. ERIC NOTED CLEAN DRY AND INTACT WITH BRUISING NOTED TO CHEST AND RIGHT KNEE. CALL LIGHT IN REACH
[2017-01-28 20:00] VITALS: BP 151/55
--- NOTE | 2017-01-28 20:14 | NUR ---
PATIENT BEING TAKEN DOWN FOR CT
[2017-01-29] VITALS: BP 108/66
--- NOTE | 2017-01-29 00:38 | NUR ---
PATIENT IS RESTING QUIETLY WITH EYES CLOSED. NO SIGNS OF DISTRESS NOTED. BED IN LOWEST POSITION, CALL LIGHT IN REACH. BED RAILS UP X'S 2. HOB 20 DEGREES.
[2017-01-29 03:47] VITALS: BP 134/49
--- NOTE | 2017-01-29 07:30 | NUR ---
RECIEVED PT DURING WALKING ROUNDS. PT RESTING IN BED WITH NO COMPLAINTS OF PAIN OR DISCOMFORT AT THIS TIME. ASSESSMENT DONE PER FLOWSHEET. BED IN LOW POSITION AND CALL LIGHT WITHIN REACH. WILL CONTINUE TO MONITOR.
[2017-01-29 08:29] VITALS: BP 141/67
--- NOTE | 2017-01-29 10:23 | NUR ---
CM REASSESSMENT NOTE: PATIENT WAS OUT OF NETWORK WITH [facility] AND [facility] DID NOT HAVE BEDS AVAILABLE. REFERRAL HAS BEEN SENT TO [facility] IF THEY DO NOT ACCEPT PATIENT THEN REFERRAL WILL BE SENT TO [facility] PER PATIENT.
--- NOTE | 2017-01-29 13:04 | NUR ---
CM REASSESSMENT NOTE; PATIENT DENIED AT [facility] AND REFERRAL BEING SENT TO [facility].
[2017-01-29 13:06] VITALS: BP 182/62
--- NOTE | 2017-01-29 15:58 | NUR ---
NUTRITION MONITORING & EVAL CHART REVIEWED. PT TOLERATING ADA DIET. 75 TO 100% INTAKE RECENT MEALS. RD FOLLOWING
[2017-01-29 16:29] VITALS: BP 176/73
--- NOTE | 2017-01-29 16:30 | NUR ---
ANANDA REC. CALL FROM TAIWO AT [facility] AND SHE STATED SHE HAD TROUBLE WITH PATIENTS INSURANCE REGARDING SNF PLACEMENT. TAIWO STATED SHE IS CALLING INSURANCE BACK TOMORROW AND WILL LET CM KNOW IF PATIENT WILL BE ACCEPTED. ANANDA SPOKE WITH PATIENT AND SHE IS ALSO CALLING HER INSURANCE TOMORROW. CM WILL CONTINUE TO FOLLOW PATIENT WITH D/C NEEDS AND PLANS.
--- NOTE | 2017-01-29 18:13 | NUR ---
OT NOTE: PT COMPLETED TOILETING AND HYGIENE WITH SBA. PT COMPLETED ADL MOB WITH RW AND SBA. PT COMPLETED DYNAMIC STANDING AXS WITH SBA. THANK YOU, PEÑA DODGE/Dalia
--- NOTE | 2017-01-29 19:15 | NUR ---
BEDSIDE REPORT RECEIVED AND CARE OF PT ASSUMED. PT LYING IN SUPINE POSITION WATCHING TV AND TALKING ON THE PHONE. IV IN LEFT FA SALINE LOCKED. INCISIONS ON CHEST WELL APPROXIMATED AND CLEAN. WESLY DRAINS COMPRESSED WITH SEROUS FLUID IN COLLECTION BULBS. WILL MONITOR CLOSELY FOR NEEDS.
[2017-01-29 20:00] VITALS: BP 99/66
--- NOTE | 2017-01-29 21:15 | NUR ---
HS MEDICATIONS GIVEN. WILL CONTINUE TO MONITOR FOR NEEDS.
--- NOTE | 2017-01-29 21:20 | NUR ---
FSBS 237 THIS CHECK REQUIRING COVERAGE WITH 4 UNITS OF REGULAR INSULIN PER SLIDING SCALE. HS SNACK OF GABRIELLE CRACKERS AND 2% MILK PROVIDED PER DIET ORDERS.
[2017-01-30] VITALS: BP 105/76
--- NOTE | 2017-01-30 00:04 | NUR ---
RECEIVED ORDER FOR NORCO 5/325 Q4 PRN FOR PT REPORTS OF PAIN AT LEVEL 5/10, KEENA ON LEFT SIDE. GAVE FIRST DOSE NOW ALONG WITH PRN MELATONIN PER PT REQUEST. WILL MONITOR CLOSELY FOR NEEDS. SIDE RAILS UP X2 FOR SAFETY.
--- NOTE | 2017-01-30 01:05 | NUR ---
PT RESTING QUIETLY ON LEFT SIDE WITH EYES CLOSED AND UNLABORED BREATHING. CALL LIGHT WITHIN REACH.
[2017-01-30 04:00] VITALS: BP 120/81
[2017-01-30 09:15] VITALS: BP 137/47
[2017-01-30 09:24] LABS: BASOPHILS 0.8 % (0-2); EOSINOPHILS 5.8 % (0-7); HEMATOCRIT 27.2 % (36.0-48.0); HEMOGLOBIN 8.1 g/dL (12-16); IMMATURE GRANULOCYTES 0.7 % (0-5); LYMPHOCYTES 9.6 % (15-50); MCH 24.8 pg (26.0-34.0); MCHC 29.8 g/dL (31.0-37.0); MCV 83.4 fL (80.0-100.0); MEAN PLATELET VOLUME 8.9 fL (7.4-10.4); NEUTROPHILS 72.1 % (40-80); PLATELET COUNT 200 10x3/uL (130-400); RBC 3.26 10x6/uL (4.00-5.40); RDW 15.8 % (11.5-14.5); WBC 7.3 10x3/uL (4.8-10.8)
[2017-01-30 09:39] LABS: APTT 30.5 SECONDS (22.8-39.4); INR 1.07 (0.85-1.17); PROTIME 13.8 SECONDS (11.6-15.0)
[2017-01-30 13:23] LABS: PROTEIN - BODY FLUID 2.5 G/DL
--- NOTE | 2017-01-30 14:11 | NUR ---
OT NOTE: PT JUST RETURNED FROM PROCEDURE. REPORTED LESS PAIN ON R SIDE, BUT MORE PAIN IN LEFT. PT REPORTED THAT SHE WAS TIRED AND HURTING FROM PROCEDURE, BUT WAS AGREEABLE TO PERFORM SOME ADLS. PROVIDED PT WITH WASHCLOTH TO CLEAN HANDS AND FACE; TOOTHBRUSH SET UP FOR ORAL CARE FROM BED; PT ABLE TO PERFORM WITHOUT DIFFICULTY. STATED THAT SHE THOUGHT SHE WOULD FEEL BETTER THIS AFTERNOON SO THAT SHE COULD DO EXS
[2017-01-30 14:35] LABS: LYMPH - BF 67 %; MACROPHAGES BF 8 %; MESOTHELIALS BF 6 %; NEUT - BF 19 %
[2017-01-30 15:45] VITALS: BP 164/75
--- NOTE | 2017-01-30 17:58 | NUR ---
OT NOTE: PT COMPLETED EOB SITTING WITH SPV. PT COMPLETED BUE FM/GROSS MOTOR AXS AT EOB WITH SPV. THANK YOU, PEÑA DODGE/Dalia
[2017-01-30 20:00] VITALS: BP 131/80
--- NOTE | 2017-01-30 22:40 | NUR ---
GAVE NORCO AND MELATONIN PER PT REQUEST. WILL CONTINUE TO MONITOR FOR NEEDS.
[2017-01-31] VITALS: BP 111/62
[2017-01-31 04:00] VITALS: BP 129/47
[2017-01-31 05:21] LABS: ANION GAP 7.5 mmol/L (8-16); CALCIUM 8.8 mg/dL (8.5-10.1); CARBON DIOXIDE 32.5 mmol/L (21.0-32.0); CREATININE - SERUM 1.1 mg/dL (0.6-1.3)
[2017-01-31 05:43] LABS: HEMATOCRIT 27.6 % (36.0-48.0); HEMOGLOBIN 8.2 g/dL (12-16); LYMPHOCYTES 8.9 % (15-50); MCH 24.8 pg (26.0-34.0); MCHC 29.7 g/dL (31.0-37.0); MCV 83.6 fL (80.0-100.0); MEAN PLATELET VOLUME 9.3 fL (7.4-10.4); NEUTROPHILS 77.3 % (40-80); PLATELET COUNT 236 10x3/uL (130-400); RDW 15.7 % (11.5-14.5); WBC 7.7 10x3/uL (4.8-10.8)
--- NOTE | 2017-01-31 06:36 | NUR ---
ALL NEEDS MET DURING SHIFT. CONTINUE PLAN OF CARE.
[2017-01-31 08:32] VITALS: BP 115/45
--- NOTE | 2017-01-31 10:27 | NUR ---
OT NOTE: PT SITTING UP ON EDGE OF BED; REPORTED FEELING BETTER BUT WITH CONT PAIN REPORTED ON L SIDE OF CHEST; PT WAS INDEP IN PERFORMING HER BREATHING EXS AND ENCOURAGED TO PERFORM FREQ SHE COULD. REPORTED THAT SHE AMB THIS AM, AROUND THE NURSES DESK. PT WILL REQUIRE CONT EXS FOLLOWING DC FOR STRENGTH AND ENDURANCE
[2017-01-31 12:38] VITALS: BP 152/68
--- NOTE | 2017-01-31 14:51 | NUR ---
CM REASSESSMENT NOTE: DR. CALVO DID A PEER TO PEER FOR IP REHAB AND WAS DENIED. DOCTOR TOLD DR. CALVO SHE WOULD BE GOOD FOR SNF. DR. CALVO EXPLAINED TO HIM SHE HAS BEEN TURNED DOWN FROM NUMEROUS FACILITIES FROM NOT IN NETWORK. THE DOCTOR STATED HE WOULD CONTACT A BUSINESS BROKER FOR THE PATIENT. CM HERE AT HOSPITAL CALLED [facility] AND TOLD THEM TO CONTACT PATIENTS INURANCE AGAIN REGARDING PLACEMENT. (SPOKE TO BONY AT [facility]) CM WAITING TO HEAR FROM [facility]
[2017-01-31 15:20] LABS: FUNGUS STAIN Final report (())
[2017-01-31 16:12] VITALS: BP 110/36
--- NOTE | 2017-01-31 17:57 | NUR ---
OT NOTE: PT COMPLETED DYNAMIC SITTING BALANCE WITH SBA/CGA. PT COMPLETED DYNAMIC STANDING BALANCE AXS WITH SBA/CGA. PT COMPLETED ADL MOB WITH RW TO BATHROOM WITH SBA/CGA. PT COMPLETED TOILETING AND HYGIENE TASKS WITH SUPV. THANK YOU, PEÑA DODGE/Dalia
[2017-01-31 20:00] VITALS: BP 103/53
[2017-01-31 20:08] LABS: ACID FAST SMEAR Negative (()); AFB SPECIMEN PROCESSING Concentration (())
[2017-02-01] VITALS: BP 114/53
[2017-02-01 04:00] VITALS: BP 139/52
--- NOTE | 2017-02-01 05:01 | NUR ---
PT IS ASLEEP WITH NO DISTRESS NOTED. CPAP IS IN PLACE AND FAMILY ASLEEP AT THE BEDSIDE. THE BED IS LOW, RAISL UP X'S 2 WITH THE CALL LIGHT AT HAND.
[2017-02-01 06:45] LABS: BASOPHILS 0.7 % (0-2); EOSINOPHILS 3.8 % (0-7); HEMOGLOBIN 8.1 g/dL (12-16); IMMATURE GRANULOCYTES 0.7 % (0-5); LYMPHOCYTES 9.9 % (15-50); MCH 24.9 pg (26.0-34.0); MCV 83.1 fL (80.0-100.0); MEAN PLATELET VOLUME 9.7 fL (7.4-10.4); MONOCYTES 9.6 % (2-11); NEUTROPHILS 75.3 % (40-80); PLATELET COUNT 234 10x3/uL (130-400); RBC 3.25 10x6/uL (4.00-5.40); RDW 15.6 % (11.5-14.5); WBC 7.6 10x3/uL (4.8-10.8)
[2017-02-01 07:15] LABS: ANION GAP 4.5 mmol/L (8-16); CALCIUM 8.6 mg/dL (8.5-10.1); CARBON DIOXIDE 34.7 mmol/L (21.0-32.0); CREATININE - SERUM 1.1 mg/dL (0.6-1.3); POTASSIUM - SERUM 5.2 mmol/L (3.5-5.1)
[2017-02-01 07:48] VITALS: BP 160/76
--- NOTE | 2017-02-01 08:00 | NUR ---
AWAKE AND ALERT. ORIENTED X3. C/O SOME PAIN TO LEFT SIDE OF BREAST. REQUESTED AND GIVEN ON HYDROCODONE PO FOR SAME. WILL MONITOR. LUNGS ARE CLEAR BILATERALLY, NO COUGH NOTED. SKIN IS INTACT WITHOUT REDNESS EXCEPT INCISIONS TO BILATERAL BREAST WHICH HAVE DRY INTACT DRESSINGS IN PLACE. WESLY PATENT X2 WITH SEROUS DRAINAGE NOTED. SL TO LEFT FOREARM IS PATENT WITHOUT REDNESS AT INSERTION SITE. DENIES NEEDS.
[2017-02-01 11:47] VITALS: BP 129/62
--- NOTE | 2017-02-01 12:00 | NUR ---
FSBS 209. GIVEN 4 UNITS REGULAR PER SS. DENIES NEEDS. UP IN CHAIR AT THIS TIME.
--- NOTE | 2017-02-01 13:33 | NUR ---
REQUESTED AND GIVEN ONE HYDROCODONE PO FOR C/O LEFT BREAST PAIN LEVEL 6. WILL MONITOR.
[2017-02-01 15:54] VITALS: BP 137/75
--- NOTE | 2017-02-01 16:00 | NUR ---
AMBULATED OVER 500 FEET WITH ROOM MATE. NO C/O WITH INCREASED ACTIVITY.
--- NOTE | 2017-02-01 18:47 | NUR ---
ATE MOST OF SUPPER. DENIES NEEDS. NO CHANGES NOTED.
[2017-02-01 19:00] VITALS: BP 140/48
--- NOTE | 2017-02-01 19:25 | NUR ---
ALERT/AWAKE SITTING UP WATCHING TV. DENIES PAIN OR ANY NEEDS. DRSG ON CHEST C/D/I, RT AND LT J-TUBES CONTAIN SML AMT SEROSANGUINOUS FLUID. 02 AT 2L/NC, RR EVEN U/L. IV IN L FA INTACT SL. ORIENTED TO CALL LIGHT FOR ANY NEEDS.
--- NOTE | 2017-02-01 21:30 | NUR ---
ADMIN SCHED MEDS AND NORCO 5/325 MG PER REQUEST FOR C/O CHEST INCISIONAL PAIN LEVEL 7 ON NUMBER SCALE, DESCRIBED SHARP WITH MOVEMENT. ADMIN 2 UNITS HUMULIN R FOR BS 173. REQUESTED DOOR CLOSED AND LIGHTS OFF TO SLEEP.
--- NOTE | 2017-02-02 02:00 | NUR ---
REQUESTED ASSISTANCE TO BATHROOM AND BACK TO BED. NO OTHER NEEDS VOICED.
[2017-02-02 04:00] VITALS: BP 140/60
[2017-02-02 06:05] LABS: BASOPHILS 0.5 % (0-2); EOSINOPHILS 4.9 % (0-7); HEMATOCRIT 27.5 % (36.0-48.0); HEMOGLOBIN 8.2 g/dL (12-16); IMMATURE GRANULOCYTES 0.8 % (0-5); MCH 24.8 pg (26.0-34.0); MCHC 29.8 g/dL (31.0-37.0); MCV 83.3 fL (80.0-100.0); MEAN PLATELET VOLUME 9.1 fL (7.4-10.4); MONOCYTES 7.6 % (2-11); NEUTROPHILS 76.2 % (40-80); PLATELET COUNT 230 10x3/uL (130-400); RDW 15.5 % (11.5-14.5); WBC 7.6 10x3/uL (4.8-10.8)
--- NOTE | 2017-02-02 06:10 | NUR ---
ADMIN SCHED MEDS. CHECKED BS AT 140. EMPTIED 10 CC FROM LEFT WESLY DRAIN AND 5 CC FROM RT WESLY DRAIN.
[2017-02-02 06:48] LABS: CALCIUM 8.8 mg/dL (8.5-10.1); CARBON DIOXIDE 35.9 mmol/L (21.0-32.0); CREATININE - SERUM 1.1 mg/dL (0.6-1.3); POTASSIUM - SERUM 4.9 mmol/L (3.5-5.1)
[2017-02-02 07:48] VITALS: BP 130/64
--- NOTE | 2017-02-02 07:54 | NUR ---
AWAKE AND ALERT. ORIENTED X3. C/O LEFT BREAST AND COCCYX PAIN LEVEL 6. REQUESTED AND GIVEN ONE HYDROCODONE PO FOR SAME. WILL MONITOR. LUNGS ARE CLEAR BILATERALLY, NO COUGH NOTED. SKIN IS INTACT WITHOUT REDNESS EXCEPT INCISIONS TO BILATERAL BREAST WHICH HAVE DRY INTACT DRESSINGS IN PLACE AND SMALL SUPERFICIAL STAGE 2 TO COCCYX. BUTT BALM IS APPLIED TO SAME. WILL MONITOR. IV TO LEFT HAND IS PATENT WITHOUT REDNESS AT INSERTION SITE. DENIES NEEDS. UP TO BR PER SELF.
--- NOTE | 2017-02-02 10:35 | NUR ---
SITTING UP IN CHAIR AT BEDSIDE. DENIES NEEDS.
[2017-02-02 14:08] VITALS: BP 121/59
--- NOTE | 2017-02-02 17:00 | NUR ---
FSBS 213. GIVE 4 UNITS REGULAR SUBQ PER SS. SUPPER SERVED IN ROOM. NO CHANGES NOTED. DENIES NEEDS.
[2017-02-02 19:00] VITALS: BP 128/43
[2017-02-03] VITALS: BP 140/61
--- NOTE | 2017-02-03 00:06 | NUR ---
INIITIAL ROUNDS COMPLETED AT 1920 HRS. PT DENIED ANY DISOCMFORT. ASSESSMENT COMPLETED AT 2100 HRS. VSS. IV TO LFA SL. O2 4LNC. LUNGS DIMINISHED IN BASES BILAT. DRESSING TO UPPER CHEST CLEAN, DRY AND INTACT. PM FSBS 228. 4 UNITS REG INSULIN GIVEN SUB-Q TO UPPER R ARM. PM MEDS GUIVNE. PT CURRENTLY RESTING WITH EYES CLOSED. RESP EVEN AND REGULAR. SR UP X2, CALL LIGHT WITHIN REACH.
--- NOTE | 2017-02-03 02:46 | NUR ---
PT RESTING WITH EYES CLOSED. RESP EVEN AND REGULAR. SR UP X2, CALL LIGHT WITHIN REACH.
[2017-02-03 04:00] VITALS: BP 128/65
--- NOTE | 2017-02-03 05:20 | NUR ---
PT RESTING WITH EYES CLOSED. RESP EVEN AND REGULAR. SR UP X2, CALL LIGHT WITHIN REACH.
[2017-02-03 06:09] LABS: BASOPHILS 0.5 % (0-2); EOSINOPHILS 4.2 % (0-7); HEMATOCRIT 25.6 % (36.0-48.0); HEMOGLOBIN 7.7 g/dL (12-16); IMMATURE GRANULOCYTES 0.7 % (0-5); LYMPHOCYTES 10.1 % (15-50); MCH 24.8 pg (26.0-34.0); MCHC 30.1 g/dL (31.0-37.0); MCV 82.3 fL (80.0-100.0); MEAN PLATELET VOLUME 9.3 fL (7.4-10.4); MONOCYTES 7.8 % (2-11); NEUTROPHILS 76.7 % (40-80); PLATELET COUNT 235 10x3/uL (130-400); RBC 3.11 10x6/uL (4.00-5.40); RDW 15.5 % (11.5-14.5); WBC 7.7 10x3/uL (4.8-10.8)
[2017-02-03 06:44] LABS: ANION GAP 6.9 mmol/L (8-16); CALCIUM 8.5 mg/dL (8.5-10.1); CARBON DIOXIDE 36.2 mmol/L (21.0-32.0); CREATININE - SERUM 1.2 mg/dL (0.6-1.3); POTASSIUM - SERUM 5.1 mmol/L (3.5-5.1)
--- NOTE | 2017-02-03 06:54 | NUR ---
VSS THROUGHOUT NIGHT. PT STATED NORCO HELPED INCISIONAL PAIN. AM FSBS 185. 2 UNITS REG INSULIN GIVEN SUB- Q TO UPPER R ARM. NEEDS MET; WILL CONTINUE TO MONITOR.
--- NOTE | 2017-02-03 07:45 | NUR ---
PT ASSESSMENT COMPLETE AWAKE AND ALERT SITTING IN CHAIR AT BEDSIDE CALL LIGHT IN REACH PT STATES " I'M GOING TO [facility] TODAY" SALINE LOCK TO LEFT FORARM NOTED DRESSING IN TACT CLEAN DRY INTACT DRESSING NOTED TO BILATERAL BREAST AT MASTECTOMY SITE. BSA X 4 QUADS.
[2017-02-03 08:24] VITALS: BP 143/63
--- NOTE | 2017-02-03 10:35 | NUR ---
AMBULATED WITH THERAPY STAFF 250 FT. WITH OUT O2 SATS DROPPED TO 88 % THEN RETURNED TO 92 % ON RESTING ROOM AIR.
--- NOTE | 2017-02-03 11:34 | NUR ---
CM REASSESSMENT NOTE: CM REC. CALL FROM LUIS A AT [facility] LUIS A APPROVED STAY THROUGH WEEKEND. CLINICAL FOR TODAY NEEDED. LUIS A CONTACTED PALMIRA WITH [facility] REGARDING PATIENTS BENEFITS FOR SKILLED OR HOME HEALTH. PALMIRA WILL BE CONTACTING CASE MANAGEMENT TODAY.
--- NOTE | 2017-02-03 11:45 | NUR ---
CM REASSESSMENT NOTE: CM REC. CALL FROM LUIS A AT [facility]. LUIS A APPROVED STAY THROUGH WEEKEND. CLINICAL FOR TODAY NEEDED IF PATIENT DOES NOT DISCHARGE. LUIS A CONTACTED PALMIRA WITH [employer] REGARDING PATIENTS BENEFITS FOR SKILLED OR HOME HEALTH. PALMIRA WILL BE CONTACTING CASE MANAGEMENT TODAY REGARDING PATIENTS PROBLEMS WITH BENEFITS FOR SNF OR HOME HEALTH. PATIENTS FRIEND (KERRI JOHAN) WAS IN ROOM AND CAME OUT OF ROOM TO SPEAK WITH CM REGARDING D/C TODAY. HE STATED HE WILL BE DRIVING PATIENT HOME OR TO [place] TODAY WHEN DISCHARGED. PATIENT WILL BE PRIVATE PAY (AT THIS TIME) TO [place] IF SHE CHOOSES TO GO THERE INSTEAD OF HOME. LUIS A (INS.) [phone] KERRI (FRIEND) [phone]
--- NOTE | 2017-02-03 13:10 | NUR ---
OT NOTE: PT REPORTED FEELING BETTER BUT STILL NO CHANGE IN PAIN IN R SIDE; PT PERFORMING TRANSFERS WITH SBA/CGA; AMBULATED PRIOR TO THIS THERAPIST COMING IN TO SEE HER. WILL ATTEMPT EXS THIS PM
--- NOTE | 2017-02-03 13:55 | NUR ---
PT SITTING UP IN BED WITH NO VISABLE SIGNS OF PAIN OR DISCOMFORT AT THIS TIME. BED IN LOW POSITION AND CALL LIGHT WITHIN REACH. WILL CONTINUE TO MONITOR.
--- NOTE | 2017-02-03 15:24 | NUR ---
D/C REASSESSMENT NOTE: CM REC. CALL FROM OMA WITH [employer] [facility]. PATIENT IS IN NETWORK WITH [facility] IN [place]. GHADA SIGNED WITH [facility] AND REFERAAL SENT. PATIENT WILL DISCHARGE HOME TODAY BY PRIVATE CAR AND [facility] WILL SEE PATIENT ON FRIDAY. [facility] ([employer]) [phone] [employer] - [phone] FAX [phone] ATTN: [employer]
[2017-02-03] MEDS ORDERED: HYDROCODON-ACE1 EAC7 PO (16:25)
--- NOTE | 2017-02-03 17:30 | NUR ---
BILAT WESLY DRAINS D/C PER ORDER IN TACT DRESSING APPLIED NEW DRESSING TO MASTECTOMY SITES ERIC IN TACT NO SIGN OF INFESTION NOTED DISCHARGE INSTRUCTIONS GIVEN AND UNDERSTANDING EXPRESSED. PIV D/C INTACT TOLERATED WELL. GIVEN NORCO PER REQUEST PRIOR TO DISCHARGE LEFT IN WHEELCHAIR WITH FRIENDS AT SIDE ESCORTED BY STAFF
--- NOTE | 2017-02-03 17:57 | NUR ---
OT NOTE: PT COMPLETED ADL SHOWER WITH CGA. PT COMPLETED DRESSING WITH SET UP. PT COMPLETED DYNAMIC SITTING AND STANDING AXS WITH SBA. THANK YOU,PEÑA DODGE/Dalia
== END 2017-02-03 18:14 | disposition home health service (06) | DRG 579 ==
LOC: D.OPS 05:37 → D.NM 07:30 → D.OPS 13:30 → D.ICU 14:30 → D.MS 01-24 11:24
PROVIDERS: Anesthesiology; General Practice; Internal Medicine Pulmonary Disease; ADMIT Surgery
PROC: 5A09357 Assistance with Respiratory Ventilation, Less than 24 Consecutive Hours, Continuous Positive Airway Pressure (ICD-10-PCS; 2017-01-21)
PROC: 0HTV0ZZ Resection of Bilateral Breast, Open Approach (ICD-10-PCS; principal; 2017-01-21 09:30)
PROC: 07B50ZZ Excision of Right Axillary Lymphatic, Open Approach (ICD-10-PCS; 2017-01-21 09:30)
PROC: 0W993ZZ Drainage of Right Pleural Cavity, Percutaneous Approach (ICD-10-PCS; 2017-01-30)
DX: C50.911 Malignant neoplasm of unspecified site of right female breast (principal); N17.0 Acute kidney failure with tubular necrosis; J96.02 Acute respiratory failure with hypercapnia; J96.01 Acute respiratory failure with hypoxia; I13.0 Hypertensive heart and chronic kidney disease with heart failure and stage 1 through stage 4 chronic kidney disease, or unspecified chronic kidney disease; E87.4 Mixed disorder of acid-base balance; N39.0 Urinary tract infection, site not specified; Z66 Do not resuscitate; C50.912 Malignant neoplasm of unspecified site of left female breast; E11.22 Type 2 diabetes mellitus with diabetic chronic kidney disease; N18.9 Chronic kidney disease, unspecified; I50.9 Heart failure, unspecified; E11.21 Type 2 diabetes mellitus with diabetic nephropathy; I48.91 Unspecified atrial fibrillation; I95.89 Other hypotension; K74.60 Unspecified cirrhosis of liver; M10.9 Gout, unspecified; Z95.810 Presence of automatic (implantable) cardiac defibrillator; K59.00 Constipation, unspecified

== ENCOUNTER 2017-02-18 09:18 | Outpatient (CLI) | payer OTHER ==
[2017-01-24 11:52] VITALS: BMI 28.2
[~2017-02-18 09:18] MED LIST changes: +HYDROCODON-ACE1 EAC7 PO
--- NOTE | 2017-02-18 14:53 | NUR ---
1335 REPORT FROM NICK ENRIQUEZ RN. BLOOD INFUSING LEFT ARM AT 75/CC/HR. PT EATING LUNCH. FRIEND AT BEDSIDE. DENIES PROBLEMS WITH TRANSFUSION. 1350. BLOOD RATE INCREASED TO 150/CC/HR 1405 B/P LOW. PT. RUNS LOW B/P FREQUENTLY. BLOOD CONTS. AT 150/CC/HR PT. SLEEPING.
--- NOTE | 2017-02-18 17:44 | NUR ---
1520 ASSISSTED UP TO BR VOIDS LG AMT.BLOOD COMPLETED LINE BEING FLUSHED WITH NS. 1548 2ND UNIT CHECKED AT BEDSIDE BY THIS NURSE AND AL DE PAZ RN INITIATED AT 50/CC/HR. 1615 NO PROBLEMS NOTED RATE INCREASED TO 75/CC/HR 1645 UP TO BR VOIDS LG AMT. RATE INCREASED TO 175/CC/HR. LOULOU SUPPER TRAY SERVED.
[2017-02-18 19:22] LABS: BASOPHILS 0.4 % (0-2); EOSINOPHILS 6.4 % (0-7); HEMATOCRIT 31.1 % (36.0-48.0); IMMATURE GRANULOCYTES 0.5 % (0-5); LYMPHOCYTES 13.8 % (15-50); MCH 25.3 pg (26.0-34.0); MCHC 30.2 g/dL (31.0-37.0); MCV 83.6 fL (80.0-100.0); MEAN PLATELET VOLUME 9.7 fL (7.4-10.4); MONOCYTES 8.2 % (2-11); NEUTROPHILS 70.7 % (40-80); RBC 3.72 10x6/uL (4.00-5.40); RDW 15.6 % (11.5-14.5); WBC 5.6 10x3/uL (4.8-10.8)
[2017-02-18 19:23] LABS: HEMOGLOBIN 9.4 g/dL (12-16); PLATELET COUNT 173 10x3/uL (130-400)
--- NOTE | 2017-02-18 19:35 | NUR ---
PATIENT LYING IN BED, DENIES SIGNS OR SYMPTOMS OF TRANSFUSION REACTION. LOCALIZED AREA OF ITCHING IN LEFT ARMPIT, PATIENT STATES IT IS DUE TO CHEST DRESSINGS. DISCHARGE INSTRUCTIONS REVIEWED, PATIENT DISCHARGED HOME WITH FAMILY MEMBER VIA WHEELCHAIR TO PRIVATE VEHICLE
== END 2017-02-18 19:35 | disposition home or self-care (01) ==
LOC: D.OPS 09:18
PROVIDERS: Family Medicine
DX: K31.811 Angiodysplasia of stomach and duodenum with bleeding (principal)